=== PATIENT | female | born 1990 | race Caucasian/White ===

== ENCOUNTER 2022-09-23 20:08 | Emergency (ER) | payer SELFPAY ==
[2022-09-23 20:15] VITALS: BP 120/74; PULSE 84; RESP 20; TEMP 36.1; O2SAT 97
[2022-09-23 22:34] VITALS: BP 127/79; PULSE 78; O2SAT 98
--- NOTE | 2022-09-23 22:40 | PC.NURSE ---
States I think I gave myself nicotine poisoning. Started vaping again about 10 days ago. States she had two episodes of nausea/vomiting, feeling sweaty and cramping abdominal pain this afternoon. Only current symptom is feeling foggy in the back of my head.
--- NOTE | 2022-09-23 23:41 | ED.NAVMDI ---
HPI - Nausea/Vomiting/Diarrhea General Chief complaint: Nausea/Vomiting/Diarrhea Stated complaint: VOMITING/LIGHT HEADED Time Seen by Provider: 09/23/22 22:07 Source: patient Mode of arrival: Ambulatory History of Present Illness HPI Narrative: 32-year-old female former smoker with noncontributory medical history presents with her significant other and a chief complaint of improving episodes over the course of the day of lightheadedness, palpitations along with nausea and vomiting. She states that she had been fine and well and in her normal state of health until she started vaping nicotine and feels like maybe she took too much. She is unclear exactly how much she had but is certainly feeling better now, she was concerned wanted to be seen and evaluated. She currently denies any dizziness, weakness or lightheadedness. She has no chest pain, palpitations or shortness of breath. She denies abdominal pain Related Data Previous Rx's Medication Instructions Recorded triamcinolone acetonide 0.1 % 1 applic topical BID Atopic 08/17/22 topical cream dermatitis #80 grams Allergies Allergy/AdvReac Type Severity Reaction Status Date / Time diphenhydramine Allergy Mild Itching Verified 08/17/22 11:49 [From Benadryl] Throat Latex, Natural Rubber Allergy Mild Hives Verified 08/17/22 11:49 pseudoephedrine AdvReac Mild Mood swings Verified 08/17/22 11:49 [From Sudafed] Review of Systems Review of Systems Narrative: GENERAL: See HPI HEENT: Denies sinus pain, ear pain, sore throat, difficulty swallowing, dizziness. RESPIRATORY: See HPI CARDIOVASCULAR: See HPI GASTROINTESTINAL: See HPI : Denies dysuria, frequency, incontinence, hematuria, urinary retention. MUSCULOSKELETAL: denies weakness, joint pain, or bony pain SKIN: Denies rash, skin lesions, or other NEUROLOGIC: Denies weakness, headache, numbness, change in speech, confusion, seizures, incoordination. PSYCHIATRIC: No concerning psychosocial issues. 12 point review of systems is negative except for those stated above Patient History Social History Smoking Status: Former smoker Smoking Status: Former smoker tobacco type: vaping Substance Use Type: marijuana Exam Narrative Exam Narrative: GENERAL: [32] year old patient appears stated age. Well-developed patient, in mild distress. HEAD: Atraumatic. Normocephalic. EYES: Pupils equal round and reactive. Extraocular motions intact. No scleral icterus. No injection or drainage. ENT: Nose without bleeding, purulent drainage. Throat without erythema, tonsillar hypertrophy or exudate. Airway patent. NECK: Trachea midline. Non tender CARDIOVASCULAR: Regular rate and rhythm without murmurs, gallops, or rubs. RESPIRATORY: Clear to auscultation. Breath sounds equal bilaterally. No wheezes, rales, or rhonchi. GASTROINTESTINAL: Abdomen soft, non-tender, nondistended. EXTREMITIES: No edema or joint tenderness. BACK: Nontender without deformity or crepitance. No flank tenderness. NEURO: AOx3. SKIN: No rash or erythema of visible areas Initial Vital Signs Initial Vital Signs: Vital Signs Temperature 97 F L 09/23/22 20:15 Pulse Rate 84 09/23/22 20:15 Respiratory Rate 20 09/23/22 20:15 Blood Pressure 120/74 09/23/22 20:15 Pulse Oximetry 97 09/23/22 20:15 Oxygen Delivery Method 09/23/22 20:15 Course Vital Signs Vital signs: Vital Signs - 8 hr 09/23/22 20:15 09/23/22 22:34 09/23/22 22:34 Temperature 97 F L Pulse Rate 84 78 Respiratory Rate 20 Blood Pressure 120/74 127/79 Pulse Oximetry 97 98 Oxygen Delivery Method Room Air Room Air MDM - Nausea/Vomiting/Diarrhea MDM Narrative Medical decision making narrative: [32F with recent vaping presents feeling anxious, dizziness, N/V ] Multiple etiologies for patient's symptoms considered including, but not limited to: [nicotine intoxication vs. electrolyte abnormality vs. other] Prior Charts reviewed: Including FP visit from 08/17/22 Patient's symptoms improved over duration of stay with above-stated therapies. Findings and discharge diagnosis discussed with patient/family followed by verbalization of understanding Return precautions discussed with patient/family whom verbalize understanding of diagnosis and plan Discharge Plan Departure Patient Disposition: Home Clinical Impression: Nicotine abuse Activity Restrictions/Additional Instructions: *You have been diagnosed with [various symptoms associated with nicotine exposure. As we discussed your history and physical exam are very reassuring] *What to do: *Please continue to take your regular medications as directed. *Please follow up with your primary care provider in 2-3 days, call for an appointment. Let them know you were seen in the Emergency Department and that we ask that you be seen in follow up. We will electronically transmit a record of today's note if your PCP is in our system *Return to Emergency Department if you should have any new, worsening or concerning symptoms, such as [fever greater than 101 F, shaking chills, worsening pain, persistent vomiting or other bothersome symptoms] Prescriptions: No Action triamcinolone acetonide 0.1 % cream 1 applic topical BID Qty: 80 1RF Rx Instructions: 2-4 weeks Referrals: Miscellaneous,Doctor, MD [Primary Care Provider] - Visit Report Forms: Patient Portal/API
[2022-09-24] VITALS: BP 126/71; PULSE 78; RESP 18; O2SAT 97
== END 2022-09-24 00:16 | disposition home or self-care (01) ==
PROVIDERS: Emergency Provider Emergency Medicine
DX: R00.2 Palpitations (principal); R11.2 Nausea with vomiting, unspecified; R42 Dizziness and giddiness; Z72.0 Tobacco use
CPT/HCPCS: 99281